=== PATIENT | male | born 1970 | race Caucasian/White ===

== ENCOUNTER 2017-10-16 15:22 | Observation (INO) | payer MEDICARE, OTHER ==
[~2017-10-16] VITALS: Ht 172.7 cm; Wt 59.0 kg
[~2017-10-16 15:22] MED LIST: CYCL-1 PO; INSU100V36 SQ; LANTUS SQ; LISI-222 PO
[2017-10-16 16:04] LABS: BASOPHILS # (AUTO) 0.1 X10'3 (0-0.2); BASOPHILS % (AUTO) 1.2 % (0-1); EOSINOPHILS # (AUTO) 0.3 X10'3 (0-0.9); EOSINOPHILS % (AUTO) 2.6 % (0-6); HEMATOCRIT 27.9 % (42.0-52.0); HEMOGLOBIN 9.1 g/dl (14.0-17.9); LYMPHOCYTES # (AUTO) 2.7 X10'3 (1.1-4.8); LYMPHOCYTES % (AUTO) 26.9 % (21-51); MEAN CORPUSCULAR HEMOGLOBIN 27.6 PG (27.0-31.0); MEAN CORPUSCULAR HGB CONC 32.7 % (33.0-36.5); MEAN CORPUSCULAR VOLUME 84.4 FL (78-98); MEAN PLATELET VOLUME 6.1 FL (7.4-10.4); MONOCYTES # (AUTO) 0.9 X10'3 (0-0.9); MONOCYTES % (AUTO) 8.9 % (2-12); NEUTROPHILS % (AUTO) 60.4 % (42-75); RED CELL DISTRIBUTION WIDTH 17.6 % (11.5-14.5)
[2017-10-16 16:08] LABS: PLATELET COUNT 1195 X10'3 (140-440)
[2017-10-16] MEDS ORDERED: levoFLOXACIN-Levaquin 750MG/D5 150 ML IV ONE (16:20)
[2017-10-16] MEDS ORDERED: cefepime 1GM/NS ADD-VANTAGE 100 ML IV ONE (16:20)
[2017-10-16] MEDS ORDERED: vancomycin/NS 1 GM ADD-VANTAGE 250 ML IV ONE (16:20)
[2017-10-16] MEDS ORDERED: normal saline 1000ML IV soln IVB ONE (16:20)
[2017-10-16 16:35] LABS: ALANINE AMINOTRANSFERASE 12 U/L (12-78); ALBUMIN 2.4 G/DL (3.4-5.0); ALBUMIN/GLOBULIN RATIO 0.4 (1.1-1.5); ALKALINE PHOSPHATASE 110 IU/L (46-116); ANION GAP 11 (8-16); ASPARTATE AMINO TRANSFERASE 13 U/L (10-37); BILIRUBIN,TOTAL 0.4 MG/DL (0.1-1.0); BLOOD UREA NITROGEN 11 MG/DL (7-18); BUN/CREATININE RATIO 8.7 (5.4-32.0); CALCIUM 8.7 MG/DL (8.5-10.1); CHLORIDE 95 MMOL/L (99-107); CREATININE 1.27 MG/DL (0.60-1.10); GLUCOSE 200 MG/DL (70-104); MAGNESIUM 1.6 MG/DL (1.5-2.4); PHOSPHORUS 3.6 MG/DL (2.3-4.5); POTASSIUM 4.4 MMOL/L (3.5-5.1); SODIUM 128 MMOL/L (135-145); TOTAL CARBON DIOXIDE 22.4 MMOL/L (24-32); TOTAL PROTEIN 8.4 G/DL (6.4-8.2); eGFR 61 ML/MIN
[2017-10-16 16:37] LABS: INR 1.1 INR; PARTIAL THROMBOPLASTIN TIME 31 SECONDS (22-32); PROTHROMBIN TIME 11.8 SECONDS (9.0-12.0)
[2017-10-16] MEDS ORDERED: normal saline 1000ml 1,000 ML IV SCH (17:28)
[2017-10-16] MEDS ORDERED: magnesium 2GM in 50ml NS 50 ML IV PRN (17:30)
[2017-10-16] MEDS ORDERED: ondansetron/PF 4mg/2ml inj IV PRN (17:30)
[2017-10-16] MEDS ORDERED: dextrose 50%-water 50ml dispensing syringe IV PRN ×2 (17:30)
[2017-10-16] MEDS ORDERED: magnesium 4gm in 100ml NS 100 ML IV PRN (17:30)
[2017-10-16] MEDS ORDERED: magnesium hydroxide 30ml (MOM) UD suspension PO PRN (17:30)
[2017-10-16] MEDS ORDERED: insulin Lispro (HumaLOG) vial - multi-dose SQ SCH (17:30)
[2017-10-16] MEDS ORDERED: HYDROcodone/acetaminophen 10/325mg tab PO PRN (17:30)
[2017-10-16] MEDS ORDERED: magnesium Cl slow-release 64mg tablet PO PRN (17:30)
[2017-10-16] MEDS ORDERED: glucagon, human recombinant 1mg kit SUBCUT PRN (17:30)
[2017-10-16] MEDS ORDERED: mag hydrox/Alum hydrox/simeth 30ml oral suspension PO PRN (17:30)
[2017-10-16] MEDS ORDERED: MESSAGE TO PHARMACY PO ONE (17:30)
[2017-10-16] MEDS ORDERED: potassium Cl 40MEQ/NS 500ml 500 ML IV PRN ×2 (17:30)
[2017-10-16] MEDS ORDERED: potassium Cl 20 mEq SR tablet PO PRN ×2 (17:30)
[2017-10-16] MEDS ORDERED: dextrose ORAL solution 15 GM/59 ML bottle PO PRN ×2 (17:30)
[2017-10-16] MEDS ORDERED: morphine 4 MG/ML inj SYRINge IV PRN ×2 (17:30)
[2017-10-16] MEDS ORDERED: HYDROcodone/acetaminophen 5mg/325mg tablet PO PRN (17:30)
[2017-10-16] MEDS ORDERED: acetaminophen 325mg tablet PO PRN ×2 (17:30)
[2017-10-16] MEDS ORDERED: BACL10TA2 PO (18:52)
[2017-10-16] MEDS ORDERED: TIZA-248 PO (18:52)
[2017-10-16] MEDS ORDERED: CITA-311 PO (18:52)
[2017-10-16] MEDS ORDERED: OMEP40CA37 PO (18:52)
[2017-10-16] MEDS ORDERED: insulin glargine (Lantus) pen - multi-dose SQ SCH (21:00)
[2017-10-16 21:08] VITALS: BP 148/94
[2017-10-17] MEDS ORDERED: enoxaparin 40mg/0.4ml syringe SQ SCH (08:00)
[2017-10-17] MEDS ORDERED: CefTRIAXone/D5W-Rocephin 1gm 50 ML IV SCH (08:00)
[2017-10-17] MEDS ORDERED: K and/or MAG REPLACEMENT MC SCH (08:00)
== END 2017-10-16 23:03 | disposition left against medical advice (07) ==
LOC: ER 15:22 → ED HOLD 17:28 → CANBEDREQ 23:28
PROVIDERS: ADMIT Internal Medicine; ATTEND Internal Medicine
DX: J15.212 Pneumonia due to Methicillin resistant Staphylococcus aureus (principal); E87.1 Hypo-osmolality and hyponatremia; E86.0 Dehydration; R07.89 Other chest pain; D47.3 Essential (hemorrhagic) thrombocythemia; E10.42 Type 1 diabetes mellitus with diabetic polyneuropathy; G92 Toxic encephalopathy; T43.625A Adverse effect of amphetamines, initial encounter; A41.9 Sepsis, unspecified organism; J96.01 Acute respiratory failure with hypoxia; D64.9 Anemia, unspecified; K22.2 Esophageal obstruction; N17.9 Acute kidney failure, unspecified; Y92.89 Other specified places as the place of occurrence of the external cause; Z87.891 Personal history of nicotine dependence; Z79.4 Long term (current) use of insulin
CPT/HCPCS: 36415; 71045; 80053; 82948; 83036; 83605; 83735; 84100; 84145; 85025; 85610; 85730; 87040; 96365; 96367; 96368; 96372; 99285; G0378; J0692; J1815; J1956; J3370; J7030